=== PATIENT | female | born 1980 | race Caucasian/White ===

== ENCOUNTER 2020-11-03 14:22 | Emergency (ER) | payer OTHER ==
[~2020-11-03] VITALS: Ht 160 cm; Wt 63.6 kg
[2020-11-03] MEDS ORDERED: IBUPROFEN 600 MG TABLET PO ONE (20:15)
[2020-11-03 21:30] VITALS: BP 128/77
== END 2020-11-03 21:34 | disposition home or self-care (01) ==
LOC: EMS 14:32
DX: S13.8XXA Sprain of joints and ligaments of other parts of neck, initial encounter (principal); V89.2XXA Person injured in unspecified motor-vehicle accident, traffic, initial encounter; Y93.89 Activity, other specified; Y92.488 Other paved roadways as the place of occurrence of the external cause; Y99.8 Other external cause status
CPT/HCPCS: 70450; 72125; 99285